=== PATIENT | male | born 1950 | race Caucasian/White ===

== ENCOUNTER 2018-05-15 22:23 | Emergency (ER) | payer OTHER ==
[2018-05-15 22:50] VITALS: BP 163/103; PULSE 70; TEMP 97.3; BMI 19.2
--- NOTE | 2018-05-16 00:14 | PDOC ---
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 Patient notes he ran out of antibiotics (lycentoprol). The patient denies chest pain, shortness of breath, headache and dizziness. Allergies: NKDA Past surgical history: None reported Social history: None reported - Physicial Exam PE: 05/16/18 00:47 Agreed with residents exam. <Neris Barclay - Last Filed: 05/16/18 00:47> - Resident Resident Name: Juan J Robertson - ED Attending Attestation I have performed the following: I have examined & evaluated the patient, The case was reviewed & discussed with the resident, I agree w/resident's findings & plan - Medical Decision Making 05/16/18 00:49 68-year-old male with chronic hypertension now with asymptomatic hypertensive episode Patient's blood pressure has decreased on its own Patient given his regular amlodipine dose in the emergency department with plans to follow up with his primary care physician and to return should he develop any new symptoms <Armida Mccoy - Last Filed: 05/16/18 00:51> Attestations - Attestations 05/16/18 00:48 Documentation prepared by Neris Barclay, acting as certified medical aide for Armida Mccoy DO, MD <Neris Barclay - Last Filed: 05/16/18 00:47>
[2018-05-16] MEDS ORDERED: amLODIPine BESYLATE 5 MG TABLET (FP) PO ONE (00:21)
--- NOTE | 2018-05-16 00:30 | PDOC ---
History of Present Illness - General Chief Complaint: Blood Pressure Problem Stated Complaint: Blood Pressure Problem Time Seen by Provider: 05/16/18 00:12 History Source: Patient Exam Limitations: No Limitations - History of Present Illness Initial Comments: 05/16/18 00:23 Patient is a 68M with history of a CVA 15 years ago with residual left sided face, arm and leg weakness, and HTN here today complaining of elevated blood pressures at home. Patient states that he ran out of his amlodipine 5mg. His BPs were measured into the 190s by his home nurse and urgent care. Patient denies headaches, chest pain, shortness of breath, vision changes, changes to his face/arm/leg weakness. Denies fevers, chills, nausea, vomiting. Past History - Past Medical History Home Medications: Ambulatory Orders Amlodipine Besylate [Norvasc -] 5 mg PO DAILY #30 tablet 05/16/18 CVA: Yes COPD: No HTN: Yes - Suicide/Smoking/Psychosocial Hx Smoking History: Former smoker Have you smoked in the past 12 months: No Information on smoking cessation initiated: No Hx Alcohol Use: No Drug/Substance Use Hx: No Review of Systems - Review of Systems Able to Perform ROS?: Yes Comments:: 05/16/18 00:26 GENERAL/CONSTITUTIONAL: No fever or chills. No weakness. HEAD, EYES, EARS, NOSE AND THROAT: No change in vision. No sore throat. CARDIOVASCULAR: No chest pain or shortness of breath RESPIRATORY: No cough, wheezing, or hemoptysis. GASTROINTESTINAL: No nausea, vomiting, diarrhea or constipation. GENITOURINARY: No dysuria, frequency, or change in urination. SKIN: No rash NEUROLOGIC: No headache, vertigo, loss of consciousness, or change in strength/ sensation. *Physical Exam - Vital Signs Last Vital Signs Temp Pulse Resp BP Pulse Ox 97.3 F L 70 18 163/103 H 100 05/15/18 22:44 05/15/18 22:44 05/15/18 22:44 05/15/18 22:44 05/15/18 22:44 - Physical Exam Comments: 05/16/18 00:27 GENERAL: Awake, alert, and fully oriented, in no acute distress HEAD: No signs of trauma, normocephalic, atraumatic EYES: PERRLA, EOMI, sclera anicteric, conjunctiva clear ENT: Auricles normal inspection, hearing grossly normal, nares patent, oropharynx clear without exudates. Moist mucosa NECK: Normal ROM, supple, no lymphadenopathy, JVD, or masses LUNGS: No distress, speaks full sentences, clear to auscultation bilaterally HEART: Regular rate and rhythm, normal S1 and S2, no murmurs, rubs or gallops, peripheral pulses normal and equal bilaterally. ABDOMEN: Soft, nontender, normoactive bowel sounds. No guarding, no rebound. No masses EXTREMITIES: Normal inspection, Normal range of motion, no edema. No clubbing or cyanosis. NEUROLOGICAL: L sided facial droop, L arm and L leg weakness SKIN: Warm, Dry, normal turgor, no rashes or lesions noted. Moderate Sedation - Procedure Monitoring Vital Signs: Procedure Monitoring Vital Signs Temperature 97.3 F L 05/15/18 22:44 Pulse Rate 70 05/15/18 22:44 Respiratory Rate 18 05/15/18 22:44 Blood Pressure 163/103 H 05/15/18 22:44 O2 Sat by Pulse Oximetry (%) 100 05/15/18 22:44 Medical Decision Making - Medical Decision Making 05/16/18 00:30 Patient is 68M with history of HTN and CVA here today with high blood pressure. BP today in 160s, asymptomatic. Will give norvasc in ED and prescription for home until he can see his PCP. *DC/Admit/Observation/Transfer Diagnosis at time of Disposition: High blood pressure - Discharge Dispostion Disposition: HOME Condition at time of disposition: Good Decision to Admit order: No - Prescriptions Prescriptions: Amlodipine Besylate [Norvasc -] 5 mg PO DAILY #30 tablet - Referrals - Patient Instructions Printed Discharge Instructions: DI for High Blood Pressure Additional Instructions: Please return to the ED if you have any new worsening or concerning symptoms, especially chest pain, headache and shortness of breath. Please follow up with your primary care doctor this week. - Post Discharge Activity
== END 2018-05-16 01:01 | disposition home or self-care (01) ==
LOC: JER 22:23
DX: I10 Essential (primary) hypertension (principal); I69.834 Monoplegia of upper limb following other cerebrovascular disease affecting left non-dominant side; I69.844 Monoplegia of lower limb following other cerebrovascular disease affecting left non-dominant side
CPT/HCPCS: 99281-25

== ENCOUNTER 2021-10-03 12:18 | Inpatient (IN) | payer OTHER ==
[2021-10-03] MEDS ORDERED: AMPICILLIN NA/SULBACTAM NA 3 GM in SODIUM CHLORIDE 100 ML IVPB ONE (14:02)
[2021-10-03] MEDS ORDERED: ACETAMINOPHEN 500 MG TABLET (FP) PO ONE (14:06)
[2021-10-03] MEDS ORDERED: ACETAMINOPHEN 325 MG TABLET (FP) ONE ×2 (16:19→16:20)
[2021-10-03 16:28] LABS: BASO % 0.6 % (0-2.0); EOS % 0.8 % (0-4.5); HEMATOCRIT 41.5 % (35.4-49); HEMOGLOBIN 13.4 GM/dL (11.7-16.9); LYMPH % 20.5 % (8-40); MCH 23.6 pg (25.7-33.7); MCHC 32.3 g/dl (32.0-35.9); MEAN CELL VOLUME 73.1 fl (80-96); MEAN PLT VOLUME 8.2 fl (7.5-11.1); MONO % 9.8 % (3.8-10.2); NEUT % 68.3 % (42.8-82.8); PLATELET COUNT 261 10^3/uL (134-434); RBC 5.68 M/mm3 (4.00-5.60); RDW 14.6 % (11.9-15.9)
[2021-10-03 16:42] LABS: CALCIUM 9.1 mg/dL (8.5-10.1)
[2021-10-03 16:43] LABS: ALBUMIN 4.2 g/dl (3.4-5.0); BLOOD UREA NITROGEN 12.7 mg/dL (7-18)
[2021-10-03 16:46] LABS: CREATININE 0.8 mg/dL (0.55-1.3)
[2021-10-03 16:47] LABS: BILIRUBIN,TOTAL 0.5 mg/dL (0.2-1); TOT PROT 7.7 g/dl (6.4-8.2)
[2021-10-03] MEDS ORDERED: IBUPROFEN 400 MG TABLET (FP) PO PRN (17:08)
[2021-10-03] MEDS ORDERED: amLODIPine BESYLATE 5 MG TABLET (FP) ONE (19:13)
[2021-10-03] MEDS: amLODIPine BESYLATE 5 MG TABLET (FP) PO SCH (19:25)
[2021-10-03] MEDS ORDERED: HEPARIN NA (PORCINE) 5,000 UNITS/ML 1ML VIAL ONE (21:53)
[2021-10-03] MEDS: HEPARIN NA (PORCINE) 5,000 UNITS/ML 1ML VIAL SQ SCH (21:59)
[2021-10-04 01:03] VITALS: BMI 23.7
[2021-10-04] MEDS ORDERED: AMPICILLIN NA/SULBACTAM NA 1.5 GM in SODIUM CHLORIDE 100 ML IVPB SCH (06:15)
[2021-10-04] MEDS: AMPICILLIN NA/SULBACTAM NA 1.5 GM in SODIUM CHLORIDE 100 ML IVPB SCH ×5 (06:18→21:59)
[2021-10-04] MEDS ORDERED: SODIUM CHLORIDE 100 ML IVPB ONE ×3 (09:13→21:49)
[2021-10-04] MEDS ORDERED: AMPICILLIN NA/SULBACTAM NA 1.5 GM VIAL ONE ×3 (09:13→21:49)
[2021-10-04 09:48] LABS: BASO % 0.6 % (0-2.0); EOS % 2.1 % (0-4.5); HEMATOCRIT 37.1 % (35.4-49); HEMOGLOBIN 12.1 GM/dL (11.7-16.9); LYMPH % 24.1 % (8-40); MCH 23.9 pg (25.7-33.7); MCHC 32.7 g/dl (32.0-35.9); MEAN CELL VOLUME 72.9 fl (80-96); MONO % 11.1 % (3.8-10.2); NEUT % 62.1 % (42.8-82.8); PLATELET COUNT 239 10^3/uL (134-434); RBC 5.09 M/mm3 (4.00-5.60); RDW 14.4 % (11.9-15.9); WHITE BLOOD COUNT 6.7 K/mm3 (4.0-10.0)
[2021-10-04] MEDS: HEPARIN NA (PORCINE) 5,000 UNITS/ML 1ML VIAL SQ SCH ×2 (09:56→22:00)
[2021-10-04] MEDS: amLODIPine BESYLATE 5 MG TABLET (FP) PO SCH (09:58)
[2021-10-04] MEDS: SILVER SULFADIAZINE 1% TOP CREAM 50 GM JAR TP SCH ×2 (09:59→22:00)
[2021-10-04] MEDS ORDERED: traMADol HCL 50 MG TABLET PO PRN (10:06)
[2021-10-04 10:14] LABS: BLOOD UREA NITROGEN 12.9 mg/dL (7-18); CALCIUM 9.1 mg/dL (8.5-10.1)
[2021-10-04 10:15] LABS: ALBUMIN 3.4 g/dl (3.4-5.0)
[2021-10-04 10:18] LABS: CREATININE 0.8 mg/dL (0.55-1.3)
[2021-10-04 10:19] LABS: BILIRUBIN,TOTAL 0.5 mg/dL (0.2-1); TOT PROT 6.6 g/dl (6.4-8.2)
[2021-10-04] MEDS: MELATONIN 5 MG TABLETS PO PRN (22:00)
[2021-10-05] MEDS ORDERED: AMPICILLIN NA/SULBACTAM NA 1.5 GM VIAL ONE ×4 (02:05→21:43)
[2021-10-05] MEDS ORDERED: SODIUM CHLORIDE 100 ML IVPB ONE ×4 (02:05→21:43)
[2021-10-05] MEDS: AMPICILLIN NA/SULBACTAM NA 1.5 GM in SODIUM CHLORIDE 100 ML IVPB SCH ×4 (02:13→21:57)
[2021-10-05] MEDS: HEPARIN NA (PORCINE) 5,000 UNITS/ML 1ML VIAL SQ SCH ×2 (10:12→21:58)
[2021-10-05] MEDS: amLODIPine BESYLATE 5 MG TABLET (FP) PO SCH (10:12)
[2021-10-05] MEDS: SILVER SULFADIAZINE 1% TOP CREAM 50 GM JAR TP SCH ×2 (10:13→21:59)
[2021-10-05 11:05] LABS: HEMATOCRIT 41.4 % (35.4-49); HEMOGLOBIN 13.3 GM/dL (11.7-16.9); MCH 23.4 pg (25.7-33.7); MEAN CELL VOLUME 72.9 fl (80-96); MEAN PLT VOLUME 8.5 fl (7.5-11.1); PLATELET COUNT 283 10^3/uL (134-434); RBC 5.68 M/mm3 (4.00-5.60); RDW 14.7 % (11.9-15.9); WHITE BLOOD COUNT 7.2 K/mm3 (4.0-10.0)
[2021-10-05 12:07] LABS: CALCIUM 9.4 mg/dL (8.5-10.1)
[2021-10-05 12:08] LABS: BLOOD UREA NITROGEN 17.3 mg/dL (7-18)
[2021-10-05 12:13] LABS: CREATININE 0.8 mg/dL (0.55-1.3)
[2021-10-05] MEDS: ACETAMINOPHEN 325 MG TABLET (FP) PO PRN (13:48)
[2021-10-05] MEDS: MELATONIN 5 MG TABLETS PO PRN (21:59)
[2021-10-06] MEDS ORDERED: SODIUM CHLORIDE 100 ML IVPB ONE ×4 (01:40→20:29)
[2021-10-06] MEDS ORDERED: AMPICILLIN NA/SULBACTAM NA 1.5 GM VIAL ONE ×4 (01:40→20:29)
[2021-10-06] MEDS: AMPICILLIN NA/SULBACTAM NA 1.5 GM in SODIUM CHLORIDE 100 ML IVPB SCH ×4 (02:00→20:47)
[2021-10-06] MEDS: HEPARIN NA (PORCINE) 5,000 UNITS/ML 1ML VIAL SQ SCH ×2 (09:54→22:20)
[2021-10-06] MEDS: SILVER SULFADIAZINE 1% TOP CREAM 50 GM JAR TP SCH ×3 (09:55→23:33)
[2021-10-06] MEDS: amLODIPine BESYLATE 5 MG TABLET (FP) PO SCH (09:55)
[2021-10-06] MEDS ORDERED: AMOX TR/POT CLAV 875MG/125MG TABLETS (FP) PO ONE (15:04)
[2021-10-06] MEDS: metoPROLOL SUCCINATE 25 MG TAB.SR.24H (FP) PO SCH (19:52)
[2021-10-06] MEDS: FINASTERIDE 5 MG TABLET (FP) PO SCH (19:52)
[2021-10-06] MEDS: LISINOPRIL 20 MG TABLET PO SCH (19:52)
[2021-10-06] MEDS: TAMSULOSIN HCL 0.4 MG CAP PO SCH (19:52)
[2021-10-06] MEDS ORDERED: QUETIAPINE FUMARATE PO SCH (22:00)
[2021-10-06] MEDS ORDERED: ATORVASTATIN CA 80 MG TABLET (FP) PO SCH (22:00)
[2021-10-07] MEDS ORDERED: SODIUM CHLORIDE 100 ML IVPB ONE ×2 (01:49→11:01)
[2021-10-07] MEDS ORDERED: AMPICILLIN NA/SULBACTAM NA 1.5 GM VIAL ONE ×2 (01:49→11:00)
[2021-10-07] MEDS: MELATONIN 5 MG TABLETS PO PRN (02:12)
[2021-10-07] MEDS: AMPICILLIN NA/SULBACTAM NA 1.5 GM in SODIUM CHLORIDE 100 ML IVPB SCH ×3 (02:12→17:31)
[2021-10-07] MEDS ORDERED: SOLIFENACIN SUCCINATE 5 MG TAB PO SCH (10:00)
[2021-10-07] MEDS ORDERED: FERROUS SO4 325 MG TABLET (FP) PO SCH (10:00)
[2021-10-07] MEDS ORDERED: FOLIC ACID 1 MG TABLET (FP) PO SCH (10:00)
[2021-10-07] MEDS ORDERED: amLODIPine BESYLATE 10 MG TABLET (FP) PO SCH (10:00)
[2021-10-07] MEDS ORDERED: ASPIRIN COATED 81 MG TABLET.EC PO SCH (10:00)
[2021-10-07] MEDS: FINASTERIDE 5 MG TABLET (FP) PO SCH (11:06)
[2021-10-07] MEDS: LISINOPRIL 20 MG TABLET PO SCH (11:07)
[2021-10-07] MEDS: metoPROLOL SUCCINATE 25 MG TAB.SR.24H (FP) PO SCH (11:07)
[2021-10-07] MEDS: TAMSULOSIN HCL 0.4 MG CAP PO SCH (11:07)
[2021-10-07] MEDS: HEPARIN NA (PORCINE) 5,000 UNITS/ML 1ML VIAL SQ SCH (11:08)
[2021-10-07] MEDS: SILVER SULFADIAZINE 1% TOP CREAM 50 GM JAR TP SCH (11:08)
[2021-10-07] MEDS ORDERED: AMOX TR/POT CLAV 875MG/125MG TABLETS (FP) PO ONE (18:09)
[2021-10-07 19:26] VITALS: BP 134/87; PULSE 75; TEMP 98.1
[2021-10-07] MEDS: ACETAMINOPHEN 325 MG TABLET (FP) PO PRN (21:25)
== END 2021-10-07 21:53 | disposition home or self-care (01) | DRG 935 ==
LOC: JER 12:18 → JERBED 14:08 → J5S 23:58
PROVIDERS: ADMIT Internal Medicine; ATTEND Internal Medicine
PROC: 0HDNXZZ Extraction of Left Foot Skin, External Approach (ICD-10-PCS; principal; 2021-10-05)
DX: T25.222A Burn of second degree of left foot, initial encounter (principal); G81.94 Hemiplegia, unspecified affecting left nondominant side; T25.232A Burn of second degree of left toe(s) (nail), initial encounter; I10 Essential (primary) hypertension; E78.5 Hyperlipidemia, unspecified; X12.XXXA Contact with other hot fluids, initial encounter; Y92.098 Other place in other non-institutional residence as the place of occurrence of the external cause
CPT/HCPCS: 0241U-QW; 36415; 80048; 80053; 85025; 85027; 87040; 93005; 93010; 93971-TC; 97116-GP; 97161-GP; 99285-25; J1644